=== PATIENT | female | born 1980 | race Caucasian/White ===

== ENCOUNTER 2016-03-28 17:16 | Emergency (ER) | payer SELFPAY ==
[2016-03-28 17:29] VITALS: BP 131/83
[2016-03-28] MEDS ORDERED: Ketorolac INJ* 30 MG/ML 1 ML VIAL IM ONE (18:03)
--- NOTE | 2016-03-28 18:03 | UC ---
Neck Pain HPI - HPI Summary HPI Summary: 35 year old female presents with acute cervical pain and limited ROM in the right scapula. Patient woke up three days ago with pain in her neck and felt she had limited ROM in the right arm related to the pain. - History of Current Complaint Chief Complaint: UCUpperExtremity Stated Complaint: RIGHT SHOULDER PAIN Time Seen by Provider: 03/28/16 17:39 Hx Obtained From: Patient Hx Last Menstrual Period: 03/24/16 ?: No Onset/Duration Of Injury/Symptoms: Days - 3 Mechanism Of Injury: No Known Trauma Timing: Constant Onset/Duration: Gradual Onset Severity: Severe Pain Intensity: 6 - 8/10 pain with movement Pain Scale Used: 0-10 Numeric Location: Radiates To: - Cervical radiating pain to the right scapula Character: Sharp, Dull, Aching, Throbbing Aggravating Factors: Movement Alleviating Factors: Position, Heat Associated Signs & Symptoms: Positive: Weakness - Risk Factors Meningitis Risk Factors: Negative Risk Factors For Cervical Spine Injury: Posterior Midline Cervical Spine Tenderness - Allergies/Home Medications Allergies/Adverse Reactions: Allergies Allergy/AdvReac Type Severity Reaction Status Date / Time No Known Allergies Allergy Verified 03/28/16 17:29 Home Medications: Home Medications Multiple Vitamins W/ Iron [Multi Vitamin with Iron] 1 tab PO DAILY 03/28/16 [ History Confirmed 03/28/16] Prazosin CAP* [Minipress CAP*] 2 mg PO DAILY 03/28/16 [History Confirmed ] Sertraline* [Zoloft*] 100 mg PO DAILY 03/28/16 [History Confirmed 03/28/16] PMH/Surg Hx/FS Hx/Imm Hx Previously Healthy: Yes Endocrine History Of: Reports: Thyroid Disease - nodules Cardiovascular History Of: Denies: Cardiac Disorders, Hypertension, Pacemaker/ICD, Myocardial Infarction , Congestive Heart Failure, Atrial Fibrillation, Deep Vein Thrombosis, Bleeding Disorders Respiratory History Of: Denies: COPD, Asthma, Bronchitis, Pneumonia, Pulmonary Embolism GI/ History Of: Denies: Gastroesophageal Reflux, Ulcer, Gastrointestinal Bleed, Gall Bladder Disease, Kidney Stones, Diverticulitis, Renal Disease, Urosepsis Neurological History Of: Denies: TIA, CVA, Dementia, Seizures, Migraine Psychological History Of: Reports: Anxiety, Depression, Post Traumatic Stress Disorder - Surgical History Surgical History: Yes Surgery Procedure, Year, and Place: Ankle surgery 1998. 2 , 2012 and 2014 - Family History Known Family History: Positive: Other - Father- "blood clots" - Social History Lives: With Family Alcohol Use: None Substance Use Type: None Smoking Status (MU): Former Smoker Have You Smoked in the Last Year: No When Did the Patient Quit Smoking/Using Tobacco: 2006 Review Of Systems Constitutional: Positive: Negative Skin: Positive: Negative Eyes: Positive: Negative ENT: Positive: Negative Respiratory: Positive: Negative Cardiovascular: Positive: Negative Gastrointestinal: Positive: Negative Genitourinary: Positive: Negative Musculoskeletal: Positive: Decreased ROM - Right shoulder/neck Neurological: Positive: Negative Psychological: Positive: Negative All Other Systems Reviewed And Are Negative: Yes Physical Exam Triage Information Reviewed: Yes Appearance: Well-Appearing Vital Signs: Initial Vital Signs Temp 98.9 F 03/28/16 17:25 Pulse 73 03/28/16 17:25 Resp 16 03/28/16 17:25 BP 131/83 03/28/16 17:25 Pulse Ox 100 03/28/16 17:25 Vital Signs Reviewed: Yes Eye Exam: Normal Eyes: Positive: Conjunctiva Clear ENT Exam: Normal ENT: Positive: Normal ENT inspection Dental Exam: Normal Neck: Positive: Nuchal Rigidity - Posterior cervical spine tenderness to touch, Tenderness @ Respiratory Exam: Normal Respiratory: Positive: Chest non-tender, Lungs clear, Normal breath sounds Cardiovascular Exam: Normal Cardiovascular: Positive: RRR, No Murmur, Pulses Normal Abdominal Exam: Normal Abdomen Description: Positive: Nontender Bowel Sounds: Positive: Present Musculoskeletal Exam: Normal Musculoskeletal: Positive: Strength Limited @ - Right shoulder/cervical ROM, ROM Limited @ Neurological Exam: Normal Neurological: Positive: Alert, Muscle Tone Normal Psychological Exam: Normal Skin Exam: Normal Neck Pain Course/Dx - Differential Dx/Diagnosis Provider Diagnoses: Cervical strain Discharge - Discharge Plan Condition: Stable Disposition: HOME Prescriptions: Cyclobenzaprine TAB* [Flexeril TAB*] 5 mg PO TID #15 tab Ketorolac TAB (NF) [Toradol TAB (NF)] 10 mg PO TID #15 tab Patient Education Materials: Cervical Strain (ED) Additional Instructions: Please see your primary care provider or return here if symptoms persist or worsen.
== END 2016-03-28 18:30 | disposition home or self-care (01) ==
LOC: UCCORT 17:16
DX: S16.1XXA Strain of muscle, fascia and tendon at neck level, initial encounter (principal); X58.XXXA Exposure to other specified factors, initial encounter; Y93.9 Activity, unspecified; Y92.9 Unspecified place or not applicable; Z87.891 Personal history of nicotine dependence
CPT/HCPCS: 96372; 99202; G0463; J1885